=== PATIENT | female | born 1970 | race Caucasian/White ===

== ENCOUNTER 2017-12-04 11:20 | Emergency (ER) | payer SELFPAY ==
[2017-12-04 11:31] VITALS: BP 138/87; PULSE 74; RESP 20; TEMP 36.5; O2SAT 100; BMI 26.1
--- NOTE | 2017-12-04 11:44 | HMH.EDUTC ---
[facility] [place] Clinical Impression: Yeast infection involving the vagina and surrounding area Disposition: Home, Self-Care Condition on Discharge: Good Instructions: Vaginal Yeast Infection, DI for Vaginal Yeast Infection Additional Instructions: Take medication as prescribed Follow up with family doctor No sexual activity until yeast infection cleared up Return if needed Chap stick on lips will help with dryness and cracking If you began to have worsening of symptoms go to family doctor or ER Prescriptions: Fluconazole [Diflucan] 150 mg PO ONCE #2 tab Referrals: Nettie Khan [Primary Care Provider] - Time of Disposition: 12:00 Medical Decision Making - Medical Records Medical records reviewed: Yes: I reviewed the patient's medical records. Vital Signs: 12/04/17 11:31 Temperature 97.7 F Temperature Source Temporal Artery Scan Pulse Rate [Right] 74 Respiratory Rate 20 Blood Pressure [Right Arm] 138/87 Blood Pressure Mean [Right Arm] 104 Blood Pressure Source [Right Arm] Automatic Cuff Blood Pressure Position [Right Arm] Sitting 02 Sat by Pulse Oximetry 100 Oxygen Delivery Method Room Air - Keon Inquiry Pt receiving controlled substance: No Keon was queried for this patient: No [facility] [place] - General Stated complaint: Infection in mouth Mode of Arrival: Ambulatory Source of Information: Patient Limitations: No Limitations Description of Symptoms (Recalled from Triage Doc. by RN): STATES MOUTH IS SORE X3 DAYS HEENT Symptoms (Recalled from RN notes): Yes Resp Symptoms (Recalled from RN notes): No Skin Symptoms (Recalled from RN notes): No MS Symptoms (Recalled from RN notes): No Functional Status (Recalled from RN notes): N - History of Present Illness Provider Complaint: Patient state that she has been having soreness in her mouth and throat and thought she may have a throat infection State that she also noticed yesterday that she had a yeast infection or UTI state that she thinks she had the flu a couple weeks ago and had cracked lips and throat irritation ever since and wanted to have her throat checked, urine checked and get something for her yeast infection - Related Data Previous Rx's Medication Instructions Recorded Fluconazole [Diflucan] 150 mg PO ONCE #2 tab 12/04/17 Allergies Allergy/AdvReac Type Severity Reaction Status Date / Time No Known Allergies Allergy Verified 12/04/17 11:35 - Worker's Comp Is this a Worker's Comp case?: No [facility] History I have reviewed the patient's past medical history: Yes - *Social History Smoking Status: Current every day smoker Tobacco Type: cigarettes Alcohol Intake: never - Psychiatric History Expresses thoughts of harming self/others: None Suicide Plan Description: No Plan ROS Obtained: Yes All systems reviewed & no additional complaints - ENT Ears, Nose, Mouth, and Throat: Reports sore throat - Genitourinary Female Genitourinary: Reports urinary urgency, Reports vaginal itching, Reports other (Yeast infection, states that she has itching and white thick dischage) Physical Exam - General General appearance: alert, in no apparent distress - ENT ENT exam: Present: normal exam, normal oropharynx, mucous membranes moist, TM's normal bilaterally, normal external ear exam - Expanded ENT Exam Comment: Lips dry cracked on sides, mucous membranes moist - Respiratory Respiratory exam: Present: normal lung sounds bilaterally. Absent: respiratory distress - Cardiovascular Cardiovascular exam: Present: regular rate, normal rhythm. Absent: JVD - Abdominal Exam Abdominal exam: Present: soft, normal bowel sounds. Absent: distention, tenderness, guarding - Neurological Exam Neurological exam: Present: alert, oriented X3 - Psychiatric Psychiatric exam: Present: normal affect, normal mood
--- NOTE | 2017-12-04 11:48 | ED_ITS ---
[facility] – [place] Disposition Clinical Impression: Yeast infection involving the vagina and surrounding area Disposition: Home, Self-Care Condition on Discharge: Good Instructions: Vaginal Yeast Infection, DI for Vaginal Yeast Infection Additional Instructions: Take medication as prescribed Follow up with family doctor No sexual activity until yeast infection cleared up Return if needed Chap stick on lips will help with dryness and cracking If you began to have worsening of symptoms go to family doctor or ER Prescriptions: Fluconazole [Diflucan] 150 mg PO ONCE #2 tab Referrals: Nettie Khan [Primary Care Provider] - Time of Disposition: 12:00 Medical Decision Making - Medical Records Medical records reviewed: Yes: I reviewed the patient's medical records. Vital Signs: 12/04/17 11:31 Temperature 97.7 F Temperature Source Temporal Artery Scan Pulse Rate [Right] 74 Respiratory Rate 20 Blood Pressure [Right Arm] 138/87 Blood Pressure Mean [Right Arm] 104 Blood Pressure Source [Right Arm] Automatic Cuff Blood Pressure Position [Right Arm] Sitting 02 Sat by Pulse Oximetry 100 Oxygen Delivery Method Room Air - Keon Inquiry Pt receiving controlled substance: No Keon was queried for this patient: No [facility] [place] HPI - General Stated complaint: Infection in mouth Mode of Arrival: Ambulatory Source of Information: Patient Limitations: No Limitations Description of Symptoms (Recalled from Triage Doc. by RN): STATES MOUTH IS SORE X3 DAYS HEENT Symptoms (Recalled from RN notes): Yes Resp Symptoms (Recalled from RN notes): No Skin Symptoms (Recalled from RN notes): No MS Symptoms (Recalled from RN notes): No Functional Status (Recalled from RN notes): N - History of Present Illness Provider Complaint: Patient state that she has been having soreness in her mouth and throat and thought she may have a throat infection State that she also noticed yesterday that she had a yeast infection or UTI state that she thinks she had the flu a couple weeks ago and had cracked lips and throat irritation ever since and wanted to have her throat checked, urine checked and get something for her yeast infection - Related Data Previous Rx's Medication Instructions Recorded Fluconazole [Diflucan] 150 mg PO ONCE #2 tab 12/04/17 Allergies Allergy/AdvReac Type Severity Reaction Status Date / Time No Known Allergies Allergy Verified 12/04/17 11:35 - Worker's Comp Is this a Worker's Comp case?: No [facility] History I have reviewed the patient's past medical history: Yes - *Social History Smoking Status: Current every day smoker Tobacco Type: cigarettes Alcohol Intake: never - Psychiatric History Expresses thoughts of harming self/others: None Suicide Plan Description: No Plan ROS Obtained: Yes All systems reviewed & no additional complaints - ENT Ears, Nose, Mouth, and Throat: Reports sore throat - Genitourinary Female Genitourinary: Reports urinary urgency, Reports vaginal itching, Reports other (Yeast infection, states that she has itching and white thick dischage) Physical Exam - General General appearance: alert, in no apparent distress - ENT ENT exam: Present: normal exam, normal oropharynx, mucous membranes moist, TM's normal bilaterally, normal external ear exam - Expanded ENT Exam Comment: Lips dry c
[2017-12-04 11:53] LABS: Apearance,Urine Clear (Clear); Color,Urine Yellow (Yellow)
[2017-12-04 11:54] LABS: Bilirubin,Urine Negative (Negative); Blood, Urine Trace (Negative); Glucose,Urine (UA) Negative (Negative); Ketones,Urine Negative (Negative); Protein,Urine Negative (Negative); Specific Gravity, Urine <= 1.005 (1.005-1.030); UTC Leukocyte Esterase,Urine Negative (Negative); UTC Nitrate,Urine Negative (Negative); Urobilinogen,Urine 0.2 EU/dl (0.2)
[2017-12-04 12:01] VITALS: BP 138/87; PULSE 74; RESP 18; TEMP 36.7; O2SAT 100
== END 2017-12-04 12:01 | disposition home or self-care (01) ==
PROVIDERS: Emergency Provider Nurse Practitioner; PCP Family Medicine
DX: B37.3 Candidiasis of vulva and vagina (principal)
CPT/HCPCS: 81003; 99201

== ENCOUNTER → 2018-11-22 13:29 | Outpatient (CLI) | payer OTHER, SELFPAY ==
--- NOTE | 2018-11-22 13:33 | XR_ITS ---
XR foot wt bearing RT 3V HISTORY: ITS.REASON: pain ORDERING PHYSICIAN: Amarilis Cosme DPM PATIENT AGE: 47 years COMPARISON: None FINDINGS: No fracture or dislocation. No lytic or blastic change. There is normal mineralization.. The joint spaces are well-preserved. No significant degenerative/arthritic changes. No erosive changes evident. Incidental note made of a small calcaneal spur IMPRESSION: Negative, no acute finding
--- NOTE | 2018-11-22 13:33 | XR_ITS ---
XR foot wt bearing LT 3V HISTORY: ITS.REASON: pain ORDERING PHYSICIAN: Amarilis Cosme DPM PATIENT AGE: 47 years COMPARISON: None FINDINGS: No fracture or dislocation. No lytic or blastic change. There is normal mineralization.. The joint spaces are well-preserved. No significant degenerative/arthritic changes. No erosive changes evident. There is a small calcaneal spur nonspecific IMPRESSION: Negative, no acute finding
== END ==
PROVIDERS: Visit Provider Podiatrist
DX: M79.672 Pain in left foot (principal); M79.671 Pain in right foot
CPT/HCPCS: 73630

== ENCOUNTER → 2019-04-22 08:30 | Outpatient (CLI) | payer OTHER, SELFPAY ==
--- NOTE | 2019-04-22 08:33 | MM_ITS ---
MM Dig screening mamm BI w/CAD CAD Screening COMPARISON: Outside digital mammograms with CAD 11/23/2015 and follow-up additional views right breast 12/08/2015 INDICATION: There is no personal or family history of breast cancer TECHNIQUE: Standard CC and MLO images were obtained. R2 CAD reviewed. FINDINGS: Moderate diffuse fibroglandular densities are seen throughout both breasts. Again noted is asymmetric density upper outer quadrant right breast near the axillary tail stable and unchanged from the previous exam and likely asymmetric glandular tissue. There is no suspicious lesion and there are no suspicious microcalcifications. IMPRESSION: Fibrofatty parenchyma no suspicious lesion seen BI-RADS Category: 1 Negative RECOMMENDED FOLLOW-UP: 1YR - 1 YEAR FOLLOW-UP (A letter has been sent to the patient regarding results of the study.)
== END ==
PROVIDERS: PCP Internal Medicine; Visit Provider Nurse Practitioner Family
DX: Z12.31 Encounter for screening mammogram for malignant neoplasm of breast (principal)
CPT/HCPCS: 77067

== ENCOUNTER 2019-07-09 10:30 | Outpatient (RCR) | payer OTHER, SELFPAY ==
--- NOTE | 2019-06-03 11:06 | HMH.PTOPEV ---
PT Outpatient Evaluation Rehab PT Outpatient Evaluation Start: 06/03/19 10:02 Freq: Status: Active Protocol: Document 06/03/19 10:57 VIRA (Rec: 06/03/19 11:06 VIRA [id number]) Electronically Signed By Steven Cardenas, PT 06/03/19 10:57 Outpatient Therapy Subjective History Subjective History Pt is 48 yowf who presents with c/o pain in B feet x ~ 1 yr, right > left, with insidious onset of symptoms. She reports that she walks a lot for work and this always aggravates her symptoms. She had injections performed in B heels ~ 6 mos ago which helped somewhat and then another round of injections~ 1 wk ago which did not help. She reports having a night splint which she wears, maybe every other night at the most. She reports no significant PMH. During ambulation with shoes off she has decreased toe-off during late stance phase on right foot with high, inflexibile arch and mild to moderate supination. Chief Complaint Pain Symptom Type Ache,Throb Symptoms Relieved By Rest/Positioning Symptoms Aggravated By Walking Prior Functional Limitations None Current Functional Limitations Standing,Walking Symptom Description Constant but Variable Level of pain today (0-10) 3 Pain scale - at its worst (0-10) 8 Ankle/Foot Eval Palpation Tenderness bilateral Ankle/Foot Palpation Findings Tenderness Ankle/Foot Palpation Overall Comment B medial calcaneal tubercle, Right plantar heel. ROM Ankle/Foot Dorsiflexion w/Knee Extended 0-5 Active Range Motion (degrees) Ankle/Foot Dorsiflexion w/Knee Extended 0-10 Passive Range (degrees) MMT Ankle Dorsiflexion Strength Grade 5 Normal Ankle Plantarflexion Strength Grade 5 Normal Foot Eversion Strength Grade 5 Normal Foot Inversion Strength Grade 5 Normal Special Tests Ankle Anterior Drawer Test Negative Left,Negative Right Ankle Eversion Test Negative Left,Negative Right Talar Tilt Test Negative Left,Negative Right Ankle Posterior Drawer Test Negative Left,Negative Right Outpatient Therapy Assessment Impairments Problems/Impairmments Palpation Tenderness,Impaired Ran
--- NOTE | 2019-07-09 11:28 | HMH.RHREAS ---
Rehab Reassessment Rehab OP Re-assessment Start: 07/09/19 11:24 Freq: Status: Active Protocol: Document 07/09/19 11:24 VIRA (Rec: 07/09/19 11:27 PHORSAMMIE [id number]) Electronically Signed By Steven Cardenas, PT 07/09/19 11:24 Rehab Re-assessment Subjective Subjective Pt reports treatment helps, but pain returns after 1-2 hours. Objective Objective Notes Right ankle DF 0-15 deg. Assessment Progress Assessment Slower Than Expected Assessment Notes Pt has shown improvement in AROM of right ankle, but pain remains due to continued activity in standing at work. Pt presents with signs of possible plantarflexed 1st ray on the right foot. Patient goals met ST,2,3,4,5 Goals Not Met LT,2,3,4,5,6 Revised Goals none Plan Plan Continue per initial POC Frequency of Therapy 2x/wk Duration of therapy 8 wks Time and Billing Re-Eval Time 15 Re-Eval Billing Units 1 PHYSICIAN CERTIFICATION: I certify the specified therapy services for Ashli Goldberg are required, authorized, and reviewed every 30 days.
== END 2019-08-23 11:08 | disposition home or self-care (01) ==
LOC: PT 10:30
PROVIDERS: Visit Provider Podiatrist
DX: M72.2 Plantar fascial fibromatosis (principal)
CPT/HCPCS: 97010; 97014; 97033; 97035; 97110; 97140; 97163; 97164; G0283

== ENCOUNTER → 2020-09-07 09:08 | Outpatient (CLI) | payer OTHER, SELFPAY ==
--- NOTE | 2020-09-07 09:30 | MM_ITS ---
PROCEDURE: MM DIG SCREENING MAMM BI W/CAD Digital Breast Tomosynthesis Included CLINICAL INDICATION: SCREENING There is no personal or family history of breast cancer. COMPARISON: MG DIG MAMM-SCREEN JEAN from 04/22/2019 TECHNIQUE: Standard CC and MLO images and 3D Tomosynthesis was obtained. R2 CAD reviewed. FINDINGS: Moderate scattered fibroglandular densities are seen in both breast primarily upper outer quadrants and the findings are fairly symmetrical bilaterally. There is a mole marker right breast. There is a benign-appearing calcification right breast. There is a tiny benign-appearing nodular density outer quadrant left breast there is no suspicious lesion and no suspicious microcalcifications. IMPRESSION: Fibrofatty parenchyma with no suspicious lesions seen BI-RAD Category: 2 Benign Finding(s) FOLLOW-UP: 1YR 1 Year Follow-up (A letter has been sent to the patient regarding results of the study.) Dictated by: Dr. Fabián Katz MD 09/08/2020 14:33 Dr. Fabián aKtz MD in [place] 09/08/2020 14:33
== END ==
PROVIDERS: PCP Internal Medicine; Visit Provider Nurse Practitioner Family
DX: Z12.31 Encounter for screening mammogram for malignant neoplasm of breast (principal)
CPT/HCPCS: 77063; 77067

== ENCOUNTER 2021-04-09 08:30 | Outpatient (RCR) | payer OTHER, SELFPAY | END 2021-04-09 08:35 | disposition home or self-care (01) | LOC: PT 08:30 | PROVIDERS: PCP Internal Medicine; Visit Provider Internal Medicine Rheumatology | DX: M54.5 Low back pain (principal) | CPT/HCPCS: 97010; 97012; 97014; 97110; 97140; 97163; 97164; G0283 ==

== ENCOUNTER → 2022-01-11 10:53 | Outpatient (POV) | payer OTHER, SELFPAY | PROVIDERS: Visit Provider Dermatology | DX: Z00.00 Encounter for general adult medical examination without abnormal findings (principal) ==

== ENCOUNTER 2022-02-02 22:14 | Emergency (ER) | payer OTHER, SELFPAY ==
[2022-02-02 22:17] VITALS: BP 135/78; PULSE 77; RESP 14; TEMP 36.7; O2SAT 99; BMI 26.4
[2022-02-02 22:30] VITALS: BP 135/78; PULSE 81; O2SAT 98
[2022-02-02 23:00] VITALS: BP 117/79; PULSE 77; O2SAT 98
[2022-02-02 23:15] VITALS: BP 115/72; PULSE 78; O2SAT 97
[2022-02-02 23:57] VITALS: BP 135/78; PULSE 77; RESP 14; TEMP 36.7; O2SAT 99
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
== END 2022-02-03 | disposition home or self-care (01) ==
PROVIDERS: Emergency Provider Student in an Organized Health Care Education/Training Program; PCP Nurse Practitioner Family
DX: M79.604 Pain in right leg (principal); M54.2 Cervicalgia; S00.01XA Abrasion of scalp, initial encounter; R51.9 Headache, unspecified; Z82.49 Family history of ischemic heart disease and other diseases of the circulatory system; Z83.3 Family history of diabetes mellitus; Z83.438 Family history of other disorder of lipoprotein metabolism and other lipidemia; Z87.891 Personal history of nicotine dependence; V43.53XA Car driver injured in collision with pick-up truck in traffic accident, initial encounter; Y92.410 Unspecified street and highway as the place of occurrence of the external cause
CPT/HCPCS: 99282

== ENCOUNTER → 2022-02-22 11:17 | Outpatient (CLI) | payer OTHER, SELFPAY ==
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
== END ==
PROVIDERS: PCP Nurse Practitioner Family; Visit Provider Nurse Practitioner Family
DX: M54.2 Cervicalgia (principal)
CPT/HCPCS: 72050

== ENCOUNTER → 2022-04-12 09:07 | Outpatient (POV) | payer OTHER, SELFPAY | PROVIDERS: Visit Provider Dermatology | DX: Z00.00 Encounter for general adult medical examination without abnormal findings (principal) ==

== ENCOUNTER → 2023-02-21 08:15 | Outpatient (CLI) | payer OTHER, SELFPAY ==
--- NOTE | 2023-02-21 08:35 | MM_ITS ---
PROCEDURE INFORMATION: Exam: MG Bilateral Screening 3D Mammography Exam date and time: 02/21/2023 8:23 AM Age: 52 years old Clinical indication: Screening. No family history of breast cancer. TECHNIQUE: Imaging protocol: Bilateral Screening tomosynthesis and 2D mammography including computer-aided detection (CAD) when performed. COMPARISON: 1. MG MM DIG SCREENING MAMM BI W/CAD 09/07/2020 9:34 AM 2. MG DIG MAMM-SCREEN JEAN 04/22/2019 8:45 AM FINDINGS: MAMMOGRAPHY: Breast composition: There are scattered areas of fibroglandular density. Mass: None. Architectural distortion: None. Calcifications: No suspicious calcifications. Asymmetric density: None. Skin thickening: None. Axillary adenopathy: None. IMPRESSION: No mammographic evidence of malignancy. Annual screening is recommended unless otherwise clinically indicated. The ASSESSMENT: BI-RADS Category 1: Negative
== END ==
PROVIDERS: PCP Nurse Practitioner Family; Visit Provider Nurse Practitioner Family
DX: Z12.31 Encounter for screening mammogram for malignant neoplasm of breast (principal)
CPT/HCPCS: 77063; 77067

== ENCOUNTER → 2023-02-28 10:50 | Outpatient (CLI) | payer OTHER, SELFPAY ==
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
--- NOTE | 2023-02-28 11:01 | XR_ITS ---
FINAL REPORT CLINICAL HISTORY: Right wrist pain FINDINGS: RIGHT WRIST Three views demonstrate no acute fracture or dislocation. The visualized joint spaces are normally aligned. The soft tissues are unremarkable. IMPRESSION: No acute bony abnormality. Reviewed, Interpreted and Dictated by Bj Rooney MD Transcribed by Clementine Booker Authenticated and . [facility]
== END ==
PROVIDERS: PCP Nurse Practitioner Family; Visit Provider Orthopaedic Surgery
DX: G56.03 Carpal tunnel syndrome, bilateral upper limbs (principal)
CPT/HCPCS: 73110

== ENCOUNTER → 2023-05-29 12:53 | Outpatient (POV) | payer OTHER, SELFPAY ==
--- NOTE | 2023-05-29 13:13 | EXP.PAIN.OV ---
HPI Data of Consult Patient: new to practice Consult date: 05/29/23 Requesting Physician: Isabel Greenberg APRN Consult Narrative Reason for consult: Low back pain, right hip pain History of present illness: Ms. Goldberg is a 52 year old female who presents today as a new patient. She is a referral from Elizabeth Arthur's office. Today she rates her pain an 8 out of 10. She states she has pain all in her low back and right hip that has been going on for approximately 4 to 5 months. She does describe this as an aching sensation that is worse with increased activity. She does state that the pain is deep and that even rubbing or massage has not made any difference. She does state certain activities increase her pain symptoms such as bending and she also states she cannot tolerate lying on her right side at night. Patient states she has tried [id number] Tylenol and ibuprofen along with heat and ice and diclofenac gel with minimal improvement. Patient states she has also tried meloxicam 15 mg in the past however it caused GI issues and so she was put on the lower dose of 7.5 mg however she noticed no additional relief with this. Patient has tried to continue to exercise and stretch for longer than 6 weeks with minimal improvement. Patient has been to the chiropractor with no additional benefit. Patient denies any previous surgery or physical thePatient is not on any scheduled medications. Her Keon is [phone]. Its been reviewed and appropriate CC: Isabel Greenberg APRN [facility] Disclaimer: The information contained in this section may have been updated after the patient was seen, as this information can be updated by other users. Medical History Carpal tunnel syndrome Social History Smoking Status: Former smoker alcohol intake: current current occupational status: employed Travel in the last 8 weeks: None household members: spouse housing: house Review of Systems Review of Systems Review of systems:: pertinent systems reviewed and negative unless documented below Review of systems (narrative): Review of Systems: General: No recent weight changes, no fever, no sleep disturbances Respiratory: No cough, no shortness of air, no recurring pulmonary infections Cardiovascular/peripheral vascular: No chest pain, no palpitations, no edema, no shortness of breath Gastrointestinal: No new onset incontinence, normal bowel movements reported Genitourinary: No new onset incontinence Musculoskeletal: Low back pain, right hip pain Psychiatric: [Normal mood/affect] Neurological: [Denies weakness in extremities], [denies balance issues] Meds Home Medications and Allergies Home Medications Medication Instructions Recorded Confirmed Type oseltamivir 75 mg capsule 75 mg PO BID flu A 5 days #10 caps 12/03/19 12/03/19 Rx estradiol 10 mcg vaginal tablet tab vaginal 02/28/23 02/28/23 History fluticasone propionate 50 g intranasal 02/28/23 02/28/23 History mcg/actuation nasal spray,suspension New Prescriptions to Start Prescriptions: Allergies Allergy/AdvReac Type Severity Reaction Status Date / Time No Known Allergies Allergy Verified 02/28/23 11:38 Objective Narrative: Physical Exam: General: Alert and oriented x3, no acute distress, pleasant and cooperative Lungs: Respirations even and unlabored, symmetrical chest expansion Eyes: PERRL Musculoskeletal: Flexion and extension of lumbar [spine] somewhat guarded secondary to pain, [antalgic gait noted] Neurological: Speech clear, no gross sensory deficit Oswestry index score of 18 Opioid Risk Tool Opioid Risk Tool-Female Family hx alcohol abuse: No Family hx illegal drugs: No Family hx rx drug abuse: No Personal hx alcohol abuse: No Personal hx illegal drugs: No Personal hx rx drug abuse: No Age: 45+ Hx of sexual abuse: No Mental h
[2023-05-29 13:34] VITALS: BP 129/80; PULSE 74; RESP 18; O2SAT 99; BMI 26.4
== END ==
PROVIDERS: Visit Provider Nurse Practitioner Family
DX: M54.41 Lumbago with sciatica, right side (principal); M25.551 Pain in right hip; M46.1 Sacroiliitis, not elsewhere classified
CPT/HCPCS: 99202; G0463

== ENCOUNTER → 2023-05-29 13:33 | Outpatient (CLI) | payer OTHER, SELFPAY ==
--- NOTE | 2023-05-29 13:40 | XR_ITS ---
FINAL REPORT CLINICAL HISTORY: PAIN FINDINGS: SACROILIAC JOINTS SERIES 2 views of the sacroiliac joints were obtained. There is no acute fracture or dislocation. There is mild degenerative change of both sacroiliac joints with mild spurring. The visualized bony structures are normal. No soft tissue abnormality is seen. IMPRESSION: Mild degenerative change at both SI joints with mild spurring. Reviewed, Interpreted and Dictated by Todd Langley III, MD Transcribed by Yoli Patricio Authenticated and . [facility]
--- NOTE | 2023-05-29 13:40 | XR_ITS ---
FINAL REPORT CLINICAL HISTORY: PAIN FINDINGS: LUMBAR SPINE Four views demonstrate no acute fracture. There is partial sacralization of L5 on the left. There is no malalignment. IMPRESSION: Partial sacralization of L5 on the left. Reviewed, Interpreted and Dictated by Todd Langley III, MD Transcribed by Yoli Patricio Authenticated and [facility]
== END ==
PROVIDERS: PCP Internal Medicine Adolescent Medicine; Visit Provider Anesthesiology
DX: M54.50 Low back pain, unspecified (principal); M46.1 Sacroiliitis, not elsewhere classified
CPT/HCPCS: 72110; 72202

== ENCOUNTER 2023-06-09 13:21 | Day surgery (SDC) | payer OTHER, SELFPAY ==
[2023-06-09 13:36] VITALS: BP 134/79; PULSE 82; RESP 18; TEMP 36.6; O2SAT 100; BMI 26.6
[2023-06-09 13:58] VITALS: BP 118/63; PULSE 77; RESP 18; O2SAT 98
[2023-06-09 14:00] VITALS: BP 118/63; PULSE 77; RESP 18; O2SAT 98
[2023-06-09 14:11] VITALS: BP 105/73; PULSE 94; RESP 18; O2SAT 98
--- NOTE | 2023-06-09 14:16 | EXP.PAIN.PRO ---
Procedure Date: 06/09/23 Time: 14:00 Anesthesiologist:: Rasta Walton CRNA Complications:: None Pre-procedure Diagnosis:: Right sacroiliitis Post-procedure Diagnosis:: Same Indications for Procedure:: Patient is a very pleasant 52-year-old female that comes our clinic today for right sacroiliac joint injection. Patient has extreme point tenderness over the right sacroiliac joint. Patient has difficulty with flexion, extension. She has difficulty transitioning from sitting to standing. Ambulating increases pain to some degree. She rates her pain 7/10. Procedure Details:: Procedure: Right sacroliliac joint injection under fluoroscopy Informed consent was obtained and the risk and benefits of the procedure were explained to the patient.~ The patient was taken to the procedure room and noninvasive monitors were placed including noninvasive blood pressure cuff and pulse oximeter.~ The patient was placed prone on the procedure table.~ The~ right hip was cleansed using Betadine as a cleansing solution.~ C-arm fluorosocpy was used to view the right SI joint.~ The skin and subcutaneous tissues were anesthetized using Lidocaine 1.5% and a 25-gauge needle.~ After this, a 22-gauge spinal needle was inserted under fluoroscopic guidance into the inferior aspect of the right SI joint.~ Omnipaque dye was injected and a good spread was seen throughout the joint.~ After this, approximately 5 mL of bupivacaine 0.25% and Depo-Medrol 40 mg was incrementally injected into the sacroiliac joint.~ The patient tolerated the procedure well with no complications.~ The patient was observed in the Pain Clinic, then discharged home neurologically intact.~ Plan and Disposition:: Patient was discharged without incident. Patient was 95% improved in terms of pain with flexion and extension upon discharge.
== END 2023-06-09 14:11 | disposition home or self-care (01) ==
LOC: SC.PAINP 13:23
PROVIDERS: PCP Internal Medicine Adolescent Medicine; Visit Provider Nurse Anesthetist, Certified Registered
DX: M46.1 Sacroiliitis, not elsewhere classified (principal)
CPT/HCPCS: 27096; G0260; J1040

== ENCOUNTER → 2023-06-28 09:52 | Outpatient (POV) | payer OTHER, SELFPAY ==
[2023-06-28 10:49] VITALS: BP 115/72; PULSE 73; RESP 18; O2SAT 99; BMI 27.1
--- NOTE | 2023-06-28 11:09 | A.OFFVIS_ITS ---
[facility] Pain Management SOAP Note Subjective:: Patient is a pleasant 52-year-old female who presents today for follow-up of right SI injection on 06/09/2023. We are currently treating the patient for low back pain, right hip pain, right sacroiliitis. Today she rates her pain a 4 out of 10. Patient denies any new trauma or injury. Patient does state that her pain has improved some and it is not as constant as what it was. Patient does state though that the injection was very painful and that she does still continue to have pain with walking or bending over. Patient does state that she feels like her right buttocks muscle is very tight when she walks. She does state that the pain still interferes with her ability perform activities of daily living such as cooking and cleaning. Patient does state that she has started exercising and is not sure if this has made her symptoms worse. Patient is not on any scheduled medications. Her Keon is [phone]. Its been reviewed and appropriate. Review of Systems: General: No recent weight changes, no fever, no sleep disturbances Respiratory: No cough, no shortness of air, no recurring pulmonary infections Cardiovascular/peripheral vascular: No chest pain, no palpitations, no edema, no shortness of breath Gastrointestinal: No new onset incontinence, normal bowel movements reported Genitourinary: No new onset incontinence Musculoskeletal: Low back pain, right-sided Psychiatric: [Normal mood/affect] Neurological: [Denies weakness in extremities], [denies balance issues] Objective:: Physical Exam: General: Alert and oriented x3, no acute distress, pleasant and cooperative Lungs: Respirations even and unlabored, symmetrical chest expansion Eyes: PERRL Musculoskeletal: Flexion and extension of lumbar [spine] somewhat guarded secondary to pain, [antalgic gait noted] positive Kemps test Neurological: Speech clear, no gross sensory deficit Assessment:: Low back pain, right hip pain, right sacroiliitis, lumbar facet arthropathy, Plan:: Patient continues to experience significant pain in her low back with limited range of motion. Patient did have a positive Kemps test today and did have still point tenderness at her right SI. I have discussed with the patient that she may benefit from lumbar medial branch blocks in the future. We will discuss this at future visits. I will order the patient a compounded cream today. Patient will return to clinic in 1 month for reevaluation of symptoms and plan of care. Patient has been instructed to contact the clinic with any concerns before the next appointment. Dr. Mejia has reviewed this note and agrees with this plan of care. This note was dictated using voice recognition software and make contain errors or omissions. [facility] Disclaimer: The information contained in this section may have been updated after the patient was seen, as this information can be updated by other users. Medical History Carpal tunnel syndrome Family History (Updated 06/09/23 @ 13:36 by Italia Patricia RN) Other No significant family history Social History Smoking Status: Former smoker alcohol intake: current current occupational status: employed Travel in the last 8 weeks: None household members: spouse housing: house
== END ==
PROVIDERS: PCP Internal Medicine Adolescent Medicine; Visit Provider Nurse Practitioner Family
DX: M47.816 Spondylosis without myelopathy or radiculopathy, lumbar region (principal); M54.50 Low back pain, unspecified; M25.551 Pain in right hip; M46.1 Sacroiliitis, not elsewhere classified
CPT/HCPCS: 99212; G0463

== ENCOUNTER → 2023-08-03 09:04 | Outpatient (POV) | payer OTHER, SELFPAY ==
--- OUTSIDE RECORDS SUMMARY | 2023-08-03 09:07 | XMS_ITS | Continuity of Care Document ---
Author Name Unknown Organization [facility] Address [address] [address] Phone Care Team Providers Care Clinical Nutrition Manager Name Role Phone Steven Ledbetter MD Unavailable Unavailable Allergies, Adverse Reactions, Alerts Substance Reaction Status Criticality No Known Allergies Active No Inform ation Medications Medication Instructions Dosage Effective Dates (start - stop) Status Comments Nexium 40 mg capsule,delayed release take 1 capsule by oral route every day 40 MG - Active Celebrex 200 mg capsule take 1 capsule by oral route every day as needed 200 MG - Active Jessika-D 12 Hour 60 mg-120 mg tablet,extended release take 1 tablet by oral route every day as needed 1 tablet - Active Procedures Procedure Date Office Visit Level IV Methylprednisolone Acetate 80mg 021 Office Visit Level IV Office Visit Level IV EL-anti-CCP/2 Rheumatoid Factor Robert RF/3 IgM 021 RF/3 IgG/IgA New Office Consult Level V Advance Direct
[2023-08-03 09:22] VITALS: BP 119/72; PULSE 88; RESP 18; O2SAT 96; BMI 26.6
--- NOTE | 2023-08-03 09:24 | A.OFFVIS_ITS ---
[facility] Pain Management SOAP Note Subjective:: Patient is a pleasant 52-year-old female who presents today for 1 month follow- up. We are currently treating the patient for low back pain, right side sacroiliitis, right hip pain. Today she rates her pain a 5 out of 10. Patient denies any new trauma or injury. She does states she continues to have pain along her right hip and buttocks and describes it as an aching, throbbing sensation that is worse when she is getting up in the mornings or with bending. Patient does state that the compounding cream we prescribed her at the last visit did initially seem like it might have helped a little however she really has not noticed much improvement since. Patient does states she continues to use ice and it does get temporary relief. Her Keon is [phone]. Its been reviewed and appropriate. Review of Systems: General: No recent weight changes, no fever, no sleep disturbances Respiratory: No cough, no shortness of air, no recurring pulmonary infections Cardiovascular/peripheral vascular: No chest pain, no palpitations, no edema, no shortness of breath Gastrointestinal: No new onset incontinence, normal bowel movements reported Genitourinary: No new onset incontinence Musculoskeletal: Low back pain, right hip/buttocks pain Psychiatric: [Normal mood/affect] Neurological: [Denies weakness in extremities], [denies balance issues] Objective:: Physical Exam: General: Alert and oriented x3, no acute distress, pleasant and cooperative Lungs: Respirations even and unlabored, symmetrical chest expansion Eyes: PERRL Musculoskeletal: Flexion and extension of lumbar [spine] somewhat guarded secondary to pain, [antalgic gait noted] point tenderness along right SI with positive right Jim's Neurological: Speech clear, no gross sensory deficit Assessment:: Low back pain, right-sided sacroiliitis, right hip pain Plan:: Patient continues to experience significant pain in her right buttocks/right hip with limited range of motion of her lumbar spine and point tenderness along her right SI and a positive right Jim's. I have counseled the patient that she may benefit from additional injection therapy however at this time she would like to wait. I have also discussed with the patient since her pain is more predominant in the mornings that she may do well with the muscle relaxer at bedtime. I have discussed with the patient that we can always do a very low dose muscle relaxer. Patient states she will wait at this time. I have counseled the patient if she decides otherwise she can call our office and I will send in a prescription electronically. Patient will return to clinic in 1 month for reevaluation of symptoms and plan of care. Patient has been instructed to contact the clinic with any concerns before the next appointment. Dr. Mejia has reviewed this note and agrees with this plan of care. This note was dictated using voice recognition software and make contain errors or omissions. [facility] Disclaimer: The information contained in this section may have been updated after the patient was seen, as this information can be updated by other users. Medical History Carpal tunnel syndrome Family History (Updated 06/09/23 @ 13:36 by Italia Patricia RN) Other No significant family history Social History Smoking Status: Former smoker tobacco type: cigarettes alcohol intake: current current occupational status: employed Travel in the last 8 weeks: None household members: spouse housing: house
== END ==
PROVIDERS: Visit Provider Nurse Practitioner Family
DX: M54.50 Low back pain, unspecified (principal); M46.1 Sacroiliitis, not elsewhere classified; M25.551 Pain in right hip
CPT/HCPCS: 99212; G0463

== ENCOUNTER 2024-02-20 17:00 | Outpatient (RCR) | payer OTHER, SELFPAY ==
--- NOTE | 2023-12-14 18:05 | HMH.PTOPEV ---
PT Outpatient Evaluation Rehab PT Outpatient Evaluation Start: 12/14/23 17:45 Freq: Status: Active Protocol: Document 12/14/23 17:45 TARA (Rec: 12/14/23 18:05 TARA [id number]) E-signed By Ronald Cox, PT Outpatient Therapy Subjective History Subjective History Patient is a 52 year old female preseting to outpatient PT with reports of R SIJ pain starting approx 1 year ago. Symptoms of insidious onset. Most recent imaging indicates B SIJ mild degeneration and bone spurs. New diagnosis of cancer in past 12 No months? Chief Complaint Pain,Stiff Symptom Type Ache,Sharp,Dull Symptoms Relieved By Rest/Positioning,Ice Symptoms Aggravated By Sitting,Standing,Bending/ Stooping,Physical Activity, Lifting Prior Functional Limitations None Current Functional Limitations Housework,Standing,Sitting, Squatting,Bending/Stooping Symptom Description Constant but Variable Level of pain today (0-10) 5 Pain scale - at its best (0-10) 4 Pain scale - at its worst (0-10) 7 Lumbopelvic Eval Posture Thoracic Spine Posture Standing Position Neutral Lumbar Spine Posture Standing Position Increased Lordosis Assistive device Assistive Devices None / NA Palapation tenderness right Lumbar/Sacral Palpation Findings Tenderness Lumbar/Sacral Palpation Overall Comment R SIJ/QL/posterior hip mm 3/4 Accessory Movement S1 right Range of Motion Lumbar Spine Active Flexion Range of 72 Motion (degrees) Lumbar Spine Active Extension Range of 20 Motion (degrees) Left Lumbar Spine Lateral Flexion Active 21 Range of Motion (degrees) Right Lumbar Spine Lateral Flexion 24 Active Range of Motion (degrees) Lumbar Spine ROM Limitations Soft Tissue Tightness Manual Muscle Test Bilateral Knee Extension Strength Grade 5 Normal Hip Flexion Strength Grade 5 Normal Extensor Hallucis Longus Strength Grade 5 Normal Ankle Dorsiflexion Strength Grade 5 Normal Gastronemius/Soleus Strength Grade 5 Normal Special Tests Lumbar Spine Screen Positive Hip Rasta (OSKAR) Test Positive Left,Positive Right Hip Norman Test Positive Left,Positive Right Hip Piriformis Test Positive Left,Positive Right Sciatic Nerve Tension Test Negative Left,Negative Right Yusuf Test Positive Sacroiliac Joint Compression Test Negative Left,Positive Right Sacroiliac Joint Distraction Test Negative Left,Positive Right Lumbar Long [place] Distraction Test/Manual Positive Traction Oswestry Index Section 1 Pain Intensity The pain is moderate and does not vary much Section 2 Personal Care (Washing,Dresing) increase the pain, but I manage not to change my way of doing it Section 3 Lifting lifting heavy weights off the floor, but I can manage light to medium Section 4 Walking I cannot walk more than 1/2 mile without increasing pain Section 5 Sitting Pain prevents me from sitting for more than 1/2 hour Section 6 Standing I cannot stand more than 1 hour without increasing pain Section 7 Sleeping I get pain in bed, but it does not prevent me from sleeping well Section 8 Social Life My social life is normal but increases the degree of pain Section 9 Traveling I get extra pain while traveling, but it does not compel me to seek al Section 10 Changing Degreee of Pain My pain is neither getting better or worse Score and Risk Level Oswestry Sc 24 Oswestry Risk Level Moderate Disability Outpatient Therapy Assessment Impairments Problems/Impairmments Palpation Tenderness,Impaired Range of Motion,Impaired Strength,Impaired Walking, Impaired Standing,Impaired Sitting,Impaired Driving, Impaired Lifting,Impaired Household Care,Impaired Stair Climbing,Impaired Incline Stepping,Impaired Stepping on Uneven Surface,Impaired Squatting,Impaired Bending, Impaired Work Activities, Subjective C/O Pain Prognosis Rehab Potential Good Clinical Impression Consistent with Diagnosis Yes Short Term Goals Number of Weeks 2 Decrease Subjective C/O Pain Yes: 5/10 at worst Patient to be Ind w/ HEP Yes Alf Goals Number of Weeks 4-6 Decreased Palpation Tenderness Yes: 1/4 Increase Range of Motion Yes: WNL Increase Ability to Sit Yes: 1 hr without difficulty Improve Ability For Household Care Yes Improve Tolerance to Work Activities Yes Improve Oswestry Score Yes: Mild diability Decrease Subjective C/O Pain Yes: 2/10 at worst Outpatient Therapy Plan of Care Treatment Plan May Include Therapeutic Exercise Including Home Yes Exercise Program Manual Therapy Techniques Yes Neuromuscular Re-education Yes Therapeutic Activities to Return to Yes Previous Functional/Work Level Gait Training Yes ADL/Self Care Education Yes Mechanical Traction Yes Dry Needling Yes Thermal Modalities Yes Electrical Stimulation Yes Ultrasound/Phonophoresis Yes Iontophoresis Yes Orthotics/Bracing/Splinting Yes Vasopneumatic Compression Pump Yes Massage Yes Eval/Re-Eval Yes Frequency Times per week 2 Duration Number of Weeks 4-6 Addendums This patient is a candidate for social No or vocational rehab? Patient/Guardian verbally acknowledges Yes understanding of treatment program and consents to further treatment? Patient/Guardian verbally acknowledges Yes understanding of diagnosis, prognosis and goals for treatment? Eval Complexity PT Charges 46111 - Moderate Complexity Shoulder/Elbow Eval Shoulder Objective Measurements Elbow Objective Measurements PHYSICIAN CERTIFICATION: I certify the specified therapy services for Ashli Goldberg are required, authorized, and reviewed every 30 days.
--- NOTE | 2024-02-02 10:45 | HMH.RHREAS ---
Rehab Reassessment Rehab OP Re-assessment Start: 12/14/23 17:45 Freq: Status: Active Protocol: Document 02/02/24 10:04 TARA (Rec: 02/02/24 10:20 TARA [id number]) E-signed By Ronald Cox, PT Oswestry Index Section 1 Pain Intensity The pain comes and goes and is moderate Section 2 Personal Care (Washing,Dresing) increase the pain, but I manage not to change my way of doing it Section 3 Lifting I can lift heavy weights, but it gives me extra pain Section 4 Walking I have some pain when walking but it does not increase with distance Section 5 Sitting Pain prevents me from sitting for more than one hour Section 6 Standing I have some pain on standing, but it does not increase with time Section 7 Sleeping Because of my pain, my normal night's sleep is less than 6 hours sleep Section 8 Social Life Pain has no significant effect on my social life apart from limiting Section 9 Traveling I get extra pain while traveling, but it does not compel me to seek al Section 10 Changing Degreee of Pain My pain is neither getting better or worse Score and Risk Level Oswestry Sc 18 Oswestry Risk Level Moderate Disability Rehab Re-assessment Subjective Subjective Patient reports 40% improvement since start of care. 1 today; 3/10 Objective Objective Notes LS AROM: flx 74; ext WNL; SBr 18; SBl 16 Pain: 1/ current; 7/10 at worst Neuro WNL MMT: WL B Assessment Progress Assessment Progressing as Expected Assessment Notes Patient continues to have significant intermittent relief with addition of dry needling. Patient woud benefit from continuing with skilled PT interventions to address functional limitations with all standing,walking, bending and lifting activitess . Patient goals met STG's Goals Not Met LTG'ss Revised Goals NA Plan Plan Continue with curent POC. Frequency of Therapy 2x/week Duration of therapy 4 week. Time and Billing Re-Eval Time 15 Re-Eval Billing Units 1 PHYSICIAN CERTIFICATION: I certify the specified therapy services for Ashli Goldberg are required, authorized, and reviewed every 30 days.
== END 2024-02-20 17:05 | disposition home or self-care (01) ==
LOC: PT 17:00
PROVIDERS: PCP Internal Medicine Adolescent Medicine; Visit Provider Nurse Practitioner Family
DX: M53.3 Sacrococcygeal disorders, not elsewhere classified (principal)
CPT/HCPCS: 20561; 97010; 97014; 97110; 97163; 97164; 97530; G0283

== ENCOUNTER 2024-03-26 08:14 | Outpatient (CLI) | payer OTHER, SELFPAY ==
--- NOTE | 2024-03-26 08:19 | MR_ITS ---
FINAL REPORT CLINICAL HISTORY: SI PAIN, LBP COMPARISON: None FINDINGS: Multiplanar MR imaging of the lumbar spine was performed without contrast. On the sagittal T2-weighted images, there is abnormal decreased signal of the L2-3 through L5-S1 discs. The vertebrae are of normal height. The vertebral alignment is normal. L1-2: There is no significant canal stenosis or neural foraminal narrowing. L2-3: There is no significant canal stenosis or neural foraminal narrowing. L3-4: Mild diffuse disc bulge. Mild bilateral neuroforaminal narrowing. L4-5: Mild diffuse disc bulge. Mild bilateral neuroforaminal narrowing. L5-S1: There is no significant canal stenosis or neural foraminal narrowing. IMPRESSION: Mild disc bulges at L3-4 and L4-5. Reviewed, Interpreted and Dictated by Bj Rooney MD Transcribed by Denise Nicole Authenticated and [facility]
== END 2024-03-26 23:59 | disposition home or self-care (01) ==
LOC: RAD 08:15
PROVIDERS: PCP Nurse Practitioner Family; Visit Provider Nurse Practitioner Family
DX: M53.3 Sacrococcygeal disorders, not elsewhere classified (principal); M54.50 Low back pain, unspecified; G89.29 Other chronic pain
CPT/HCPCS: 72148

== ENCOUNTER 2025-01-12 10:48 | Emergency (ER) | payer OTHER, SELFPAY ==
[2025-01-12 10:54] VITALS: BP 101/65; PULSE 72; O2SAT 98
[2025-01-12 10:59] VITALS: BP 101/65; PULSE 73; RESP 16; TEMP 36.8; O2SAT 98; BMI 28.8
[2025-01-12 11:00] VITALS: BP 101/65; PULSE 76; O2SAT 97
[2025-01-12] MEDS: TRANEXAMIC ACID 1,000 MG/10 ML VIAL 1000 MG IVP (11:12)
--- NOTE | 2025-01-12 11:21 | ED_ITS ---
Discharge Plan Disposition Patient Disposition: Home, Self-Care Prescriptions Prescriptions: No Action clobetasol 0.05 % cream 1 applic topical HS Qty: 60 1RF ondansetron 4 mg tablet,disintegrating 4 mg PO Q8H PRN (Reason: nausea and vomiting) Qty: 12 0RF Referrals Follow up/Referrals: Elizabeth Arthur APRN [Primary Care Provider] - See instructions Activity Restrictions/Add. Instructions Additional Instructions/Restrictions: Change the dressing to your finger at least twice daily. When you change the dressing, put the bacitracin ointment on the wound to help prevent infection. Wrap the wound tightly over the next 1 to 2 days to help prevent any bleeding. If you develop any signs of infection, such as increased redness, swelling, pus draining from the wound, fever or if you become concerned for your health for any reason, return to the emergency department for evaluation. You can take Tylenol and ibuprofen every 6 hours as needed to help with symptoms. Clinical Impressions Clinical Impression: Laceration of left index finger Instructions Patient Instructions: DI for Laceration Repair Print Language Print Language: Lithuanian Discharge ED Provider: Kyree Rivera General Adult HPI General Chief complaint: Wound/Laceration Stated complaint: Cut her finger, weakness Time Seen by Provider: 01/12/25 11:03 Mode of Arrival: Wheelchair Source of Information: Patient Description of Symptoms (Recalled from ER Triage Doc. by RN): pt presents to ED with c/o laceration to left index finger. pt reports she was at home working on a wreath when she cut her finger. History of Present Illness HPI narrative: Ashli Goldberg is a 54-year-old female with no significant past medical history who presents to the emergency department for an injury to her left index finger. Patient states that 20 minutes prior to arrival, she was using a tobacco cutter on fabric when the cutter accidentally cut the end of her left index finger. She stated that it bled but she was able to clean it up but is continue to bleed. She denies any other injuries and states that her tetanus shot is up-to-date. Related Data Previous Rx's ?Medication ?Instructions ?Recorded clobetasol 0.05 % topical cream 1 applic topical HS #60 grams 12/06/24 ondansetron 4 mg disintegrating 4 mg PO Q8H PRN nausea and 01/02/25 tablet vomiting #12 tabs Allergies Allergy/AdvReac Type Severity Reaction Status Date / Time ciprofloxacin AdvReac Mild Nausea Verified 12/06/24 14:00 [facility] Disclaimer: The information contained in this section may have been updated after the patient was seen, as this information can be updated by other users. Medical History (Updated 01/12/25 @ 12:23 by Kyree Rivera MD) Lichen sclerosus of vulva Carpal tunnel syndrome Surgical History (Updated 12/06/24 @ 14:01 by ELVIA Batres) History of right oophorectomy Family History Other No significant family history Social History (Updated 12/06/24 @ 14:02 by ELVIA Batres) Smoking Status: Current every day smoker tobacco type: cigarettes alcohol intake: current alcohol intake frequency: holidays/special occasions only current occupational status: employed Travel in the last 8 weeks: None household members: spouse housing: house Have you lived/traveled outside [place] in past 30 days?: No Contact w/someone who lives/traveled outside [place] past 30 days?: No Exposure to someone with infectious disease in past 14 days?: No Do you have a fever (greater than 100.4 F or 38 C)?: No Have you tested positive for COVID-19: No Exposed to someone with COVID-19 in past 14 days?: No Do you have a sore throat?: No Do you have a cough?: No Do you have any weakness?: No Do you have any diarrhea?: No Are you experiencing any unusual bleeding?: No Do you have any muscle aches/pain?: No Do you have any abdominal pain?: No Are you experiencing loss of taste or smell?: No Other Medical History Have you received the Flu Vaccine for this season: No Have you received the Pneumonia Vaccine: No ROS Obtained: Yes Systems reviewed as appropriate & no additional complaints except as documented Physical Exam General General appearance: alert and in no apparent distress Head Head exam: atraumatic Eye Eye exam: Present normal appearance ENT ENT exam: Present normal external ear exam Neck Neck exam: Present full ROM Chest Chest inspection: Present symmetric chest wall rise Respiratory Respiratory exam: Present normal lung sounds bilaterally; Absent respiratory distress Cardiovascular Cardiovascular exam: Present regular rate and normal rhythm Abdominal Exam Abdominal exam: Present soft; Absent tenderness or guarding Extremities Exam Extremities exam: Present normal inspection Expanded Upper Extremity Exam Left: Comment: Left hand: Avulsion of the skin and subcutaneous tissues of the lateral aspect of the distal phalanx of the second finger. Small amount of venous oozing is present. No arterial bleeding is noted. This does not involve the fingernail or the nail bed. Back Exam Back exam: Present normal inspection Neurological Exam Neurological exam: Present alert and oriented X3 Psychiatric Psychiatric exam: Present normal affect Skin Skin exam: Present warm and dry Medical Decision Making Medical Records Screening: Per USPSTF and CDC recommendations, given the prevalence of disease in our region, it is our hospital?s policy to screen for HIV and viral Hepatitis for all patients aged 18 and over and those with ongoing risk factors. [place] Inquiry Pt receiving controlled substance: No Vital Signs: 01/12/25 10:54 01/12/25 10:59 01/12/25 11:00 Temperature 98.2 F Temperature Source Oral Pulse Rate 72 76 Pulse Rate [Left Radial] 73 Respiratory Rate 16 Blood Pressure 101/65 L 101/65 L Blood Pressure [Right Arm] 101/65 L Blood Pressure Mean [Right Arm] 77 02 Sat by Pulse Oximetry 98 98 97 Oxygen Delivery Method 01/12/25 11:30 01/12/25 12:32 Temperature 98.2 F Temperature Source Pulse Rate 68 70 Pulse Rate [Left Radial] Respiratory Rate 15 Blood Pressure 101/67 L 101/52 L Blood Pressure [Right Arm] Blood Pressure Mean [Right Arm] 02 Sat by Pulse Oximetry 97 Oxygen Delivery Method Room Air Room Air Orders (Tests/Meds): ED MEDICATIONS Discontinued Medications Generic Name Dose Route Start Last Admin Trade Name Freq PRN Reason Stop Dose Admin Bacitracin 1 gm 01/12/25 21:00 Bacitracin Zinc Oint 30gm Tube TP 02/11/25 20:59 BID LEN Tranexamic Acid 1,000 mg 01/12/25 11:07 01/12/25 11:12 Tranexamic Acid 1,000 Mg/10 Ml Vial IVP 01/12/25 11:08 1,000 mg ONCE ONE Administration Medical Decision Narrative: Ashli Goldberg is a 54-year-old female with no significant past medical history who presents to the emergency department for an injury to her left index finger. Patient states that 20 minutes prior to arrival, she was using a tobacco cutter on fabric when the cutter accidentally cut the end of her left index finger. She stated that it bled but she was able to clean it up but is continue to bleed. She denies any other injuries and states that her tetanus shot is up-to-date. On arrival, patient is mildly hypotensive but breathing comfortably on room air, heart rate within normal limits, afebrile. Physical exam, stated above, revealed an avulsion injury of the soft tissues of the left distal phalanx of the second finger. No nailbed involvement. There is some mild amount of venous oozing. No arterial bleeding is noted. Considerations were given to obtaining x-ray imaging of the left hand, however this appears to be more of a superficial injury and there is low concern for foreign body at this time. There is low concern for bony injury at this time as well. Will attempt a control bleeding with TXA soaked gauze and compression. Given the patient's skin was avulsed, is felt that suture is not indicated at this time as a large amount of skin would have to be pulled over and this would distort the anatomy of the finger. It is felt that patient's finger will heal best by secondary intention. On reassessment, patient's bleeding had improved with compression and TXA soaked gauze. Will provide patient with gauze to continue to wrap her finger at home as well as bacitracin ointment. Return precautions were given for any signs of infection, such as pus draining from the wound, increased redness or swelling, fever. She was instructed to take Tylenol and ibuprofen to help with symptoms. All questions were answered. She demonstrated understanding and was agreed with this plan. She was then discharged from the emergency department in stable condition. Critical Care Critical Care Time Critical Care Time: No
[2025-01-12 11:30] VITALS: BP 101/67; PULSE 68; O2SAT 97
[2025-01-12 12:32] VITALS: BP 101/52; PULSE 70; RESP 15; TEMP 36.8; O2SAT 99
== END 2025-01-12 12:33 | disposition home or self-care (01) ==
PROVIDERS: Emergency Provider Student in an Organized Health Care Education/Training Program; PCP Nurse Practitioner Family
DX: S61.211A Laceration without foreign body of left index finger without damage to nail, initial encounter (principal); W26.8XXA Contact with other sharp object(s), not elsewhere classified, initial encounter
CPT/HCPCS: 99284